=== PATIENT | female | born 1995 | race Caucasian/White ===

== ENCOUNTER 2017-03-06 08:54 | Inpatient (IN) | payer BC ==
[~2017-03-06 08:54] MED LIST: Buffered Lidocaine 0.9% SYRIN* 5 ML/SYR SYRINGE INTRADERM ONE
[2017-03-06] MEDS ORDERED: Heparin VIAL(*) 5000 UNITS/ML VIAL (FIVE THOUSAND) ONE (09:06)
[2017-03-06] MEDS ORDERED: ceFAZolin 1 GM ADVAN(*) 1 GM ADDV.VIAL IVPB ONE (09:06)
[2017-03-06] MEDS ORDERED: Buffered Lidocaine 0.9% SYRIN* 5 ML/SYR SYRINGE ONE (09:06)
[2017-03-06] MEDS ORDERED: ceFAZolin 2 GM PREMIX (*) 50 ML IVPB ONE (09:06)
[2017-03-06] MEDS ORDERED: fentaNYL* 50 MCG/ML 2 ML VIAL (100 MCG VIAL) ONE ×2 (11:48→17:29)
[2017-03-06] MEDS ORDERED: Midazolam* 1 MG/ML 5 ML VIAL (5 MG) ONE (11:48)
[2017-03-06] MEDS ORDERED: Bupivacaine 0.25% SDV* 30 ML ONE (12:12)
[2017-03-06] MEDS ORDERED: Methylene Blue 0.5 %* 50 MG/10 ML AMP IV ONE (12:12)
[2017-03-06] MEDS ORDERED: Clindamycin 900 MG IVPREMIX(* 900 MG/50 ML SDV IV ONE (12:27)
[2017-03-06] MEDS ORDERED: Propofol* 10 MG/ML 20 ML BTL IV PUSH ONE (12:37)
[2017-03-06] MEDS ORDERED: Succinylcholine* 20 MG/ML 10 ML VIAL ONE (12:37)
[2017-03-06] MEDS ORDERED: Dexamethasone IV* 4 MG/ML 1 ML (4 MG) ONE (12:37)
[2017-03-06] MEDS ORDERED: Lidocaine 2% PF* 10 ML AMP ONE (12:37)
[2017-03-06] MEDS ORDERED: Famotidine IV* 10 MG/ML 2 ML (20 mg) ONE (12:37)
[2017-03-06] MEDS ORDERED: Midazolam* 1 MG/ML 2 ML VIAL (2 MG) ONE (12:41)
[2017-03-06] MEDS ORDERED: Cisatracurium* 2 MG/ML MDV 5 ML ONE ×2 (12:45→12:46)
[2017-03-06] MEDS ORDERED: PROCHLORPERAZINE INJ 5 MG/ML 2 ML VIAL IV PRN (14:44)
[2017-03-06] MEDS ORDERED: HYDROmorphone INJ* 1 MG/ML CARPUJECT SYRINGE IV PRN (14:44)
[2017-03-06] MEDS ORDERED: Ondansetron INJ* 2 MG/ML VIAL IV PRN ×2 (14:44→16:27)
[2017-03-06] MEDS ORDERED: DiMENhydriNATE IV* 50 MG/ML VIAL IV PUSH PRN (14:44)
--- NOTE | 2017-03-06 16:25 | PN ---
Progress Note - Progress Note Date of Service: 03/06/17 Note: Brief Operative Note: Preop Dx: morbid obesity Postop Dx: same Procedure: Laparoscopic earline en y gastric bypass Anesthesia: GET Surgeon: Gladys Asst: MINDY Jones; MINDY Barker Fluids: 2500 ml RL EBL: < 100 ml Drains: 1 KRANTHI Specimen: none Findings: dictated
[2017-03-06] MEDS ORDERED: HYDROmorphone INJ* 2 MG/ML CARPUJECT SYRINGE IV PRN (16:27)
[2017-03-06] MEDS ORDERED: diPHENhydraMINE IV* 50 MG/ML 1 ml VIAL (BENADRYL) SLOW PUSH PRN (16:27)
[2017-03-06] MEDS ORDERED: Ondansetron INJ* 2 MG/ML VIAL ONE (16:57)
[2017-03-06] MEDS ORDERED: PROCHLORPERAZINE INJ 5 MG/ML 2 ML VIAL ONE (16:57)
[2017-03-06] MEDS ORDERED: Famotidine IV* 10 MG/ML 2 ML (20 mg) IV SLOW PU SCH (17:00)
[2017-03-06] MEDS: fentaNYL* 50 MCG/ML 2 ML VIAL (100 MCG VIAL) IV PRN ×2 (17:34→17:43)
[2017-03-06] MEDS ORDERED: HYDROmorphone INJ* 2 MG/ML CARPUJECT SYRINGE ONE (19:05)
[2017-03-06] MEDS ORDERED: Metoclopramide IV* 5 MG/ML 2 ML VIAL ONE (20:56)
[2017-03-06] MEDS: HYDROmorphone INJ* 2 MG/ML CARPUJECT SYRINGE IV PRN ×2 (21:15→23:22)
[2017-03-06] MEDS ORDERED: Metoclopramide IV* 5 MG/ML 2 ML VIAL IV PRN (21:25)
[2017-03-06] MEDS: Heparin VIAL(*) 5000 UNITS/ML VIAL (FIVE THOUSAND) SUBCUT SCH (22:14)
[2017-03-07] MEDS: Famotidine IV* 10 MG/ML 2 ML (20 mg) IV SLOW PU SCH ×2 (00:07→12:11)
[2017-03-07] MEDS: HYDROmorphone INJ* 2 MG/ML CARPUJECT SYRINGE IV PRN ×6 (01:37→19:25)
--- NOTE | 2017-03-07 02:37 | OP ---
CC: Dr. Lora Rene; [facility] * DATE OF OPERATION: 03/06/17 - ROOM #351 DATE OF : 89 SURGEON: Chace Graham MD. WATCH REPAIR PERSON: MINDY Guerra, and MINDY Carrion. ANESTHESIOLOGIST: Dr. Stahl. ANESTHESIA: General. PRE-OP DIAGNOSIS: Clinically severe obesity. POST-OP DIAGNOSIS: Clinically severe obesity. OPERATIVE PROCEDURE: Laparoscopic Shirlene-en-Y gastric bypass. ESTIMATED BLOOD LOSS: Less than 100 cc. FLUIDS: 2500 cc of lactated Ringer's. DRAINS: #7 KRANTHI drain. SPECIMEN: None. COUNTS: Lap pad count and instrument count correct at the end of the procedure. DESCRIPTION OF PROCEDURE: The patient was identified in the preoperative area. The case was discussed with her and her family, and consent signed. She was marked and brought to the operating room, placed on the operating table in a supine position. Preoperative antibiotics were given. Sequential devices were placed on bilateral lower extremities. General anesthesia was induced. The patient's abdomen was prepped and draped in the standard surgical fashion after a Diop catheter was inserted. A time-out was performed. Folds of the umbilicus were elevated anteriorly and a Veress needle was inserted into the abdominal cavity, which was then allowed to insufflate to a pressure of 15 mmHg. The patient tolerated the insufflation well. [place] between the xiphoid and the umbilicus a 12-mm trocar was inserted, just left of midline. A laparoscope was inserted through this and there was no evidence of injury from the trocar insertion or from the Veress needle, which was then removed. Additional trocars were then placed in the following position: A 12- mm and a 5-mm in the left upper quadrant and a 12-mm and a 5-mm in the right upper quadrant. Review of the liver showed that it was intact and only mildly enlarged. There was no free fluid. Small bowel appeared intact. Next, the omentum was reflected superiorly. The transverse colon identified. Below this, the ligament of Treitz was identified. We counted off approximately 75 cm from the ligament of Treitz and transected the bowel with a 60 mm becerra TOBIN stapling device. Small enterotomy was made along what would become the biliary- pancreatic limb. Next, the Jvwc-yg-jste was counted off another 115 cm and another enterotomy was made. Jejunojejunostomy was then created with a 16-mm becerra TOBIN stapling device and the common enterotomy was reapproximated with 2-0 silk sutures in a [id number]-dg-newtp fashion. We did a running stitch on the mesentery to close the mesenteric defect. Next, attention was turned towards the stomach. Table was placed in a steep reverse Trendelenburg. A Iliana retractor was inserted through a subxiphoid incision and the liver was retracted anteriorly into the right. This exposed the gastroesophageal fat pad, which was grasped and retracted towards the right lower quadrant. Both blunt and sharp dissection was carried out to identify the left zhane. There appeared to be no hiatal hernia. Next, a retrogastric tunnel was made between the second and third crossing vessel, along the lesser curvature of the stomach. We fired a 45 mm becerra TOBIN stapling device across this and completed our stomach pouch with an additional 50 mm becerra TOBIN stapling device extending it superiorly through the fundus and completely transecting the stomach. The pouch appeared appropriate size. Hemostasis was excellent. Next, the Shirlene limb was then brought in position to the stomach pouch. It reached without tension. This was sutured to the stomach pouch with 2-0 silk sutures. Next, a gastrotomy was made over an Tomi tube with electrocautery and an enterotomy was made. The gastro-jejunostomy was created with 30-mm becerra TOBIN stapling device and the common enterotomy was closed with interrupted 3-0 silk sutures in ciqtnk-qc-kxunj fashion. Next, methylene deep blue dye test was performed, clamping the Shirlene limb distally. We injected through the Tomi tube methylene blue and noted a small defect inferiorly along the anastomosis, between the stomach and small bowel. A stitch was used to close this defect up and we imbricated it as well along the stomach side of the edge of this pouch. It showed some violaceous changes that was not clear if this was hematoma underneath or potential ischemia. The stomach pouch was not devascularized in anyway, and so, my opinion at this point was that this was more of a hematoma underneath the serosa, but nevertheless, I imbricated the small bowel to the stomach pouch with interrupted 2-0 silk sutures in a U-stitch fashion, completely burrowing this portion of the stomach pouch that showed these visual changes. Next, methylene blue dye test was performed again. This time, negative results and no evidence of blue leakage. A #7 KRANTHI drain was inserted and brought out through the left most port, sutured to the skin with 3-0 silk interrupted sutures. The liver retractor was then removed. Review of the jejunojejunostomy showed that hemostasis was excellent at the site. I was concerned about the most difficult portion of the mesenteric closure and an additional 2-0 silk suture was used to sure this up. Next, the abdomen was allowed to collapse. Trocars were removed under direct vision and all of the incisions were reapproximated with skin mary followed by sterile dressing. The patient tolerated the procedure well, was woken up in the OR, and transferred to the PACU in stable condition. [id number]/CPS #: [id number] CHARLIE
[2017-03-07] MEDS: Ketorolac INJ* 30 MG/ML 1 ML VIAL IV PRN ×4 (03:48→22:03)
[2017-03-07] MEDS: Heparin VIAL(*) 5000 UNITS/ML VIAL (FIVE THOUSAND) SUBCUT SCH ×3 (05:45→21:25)
--- NOTE | 2017-03-07 09:17 | RAD ---
HISTORY: Status post gastric bypass COMPARISONS: January 04, 2017 TECHNIQUE: A single contrast fluoroscopic study was performed of the esophagus and upper GI tract. Water-soluble liquid contrast was administered under fluoroscopic observation. Multiple digital spot images were obtained Total fluoroscopy time is 0.5 minutes. FINDINGS: UPPER GI TRACT: The patient is status post gastric bypass. There is no appreciable extravasation or obstruction. The esophagus is unremarkable.. IMPRESSION: STATUS POST GASTRIC BYPASS WITHOUT APPRECIABLE EXTRAVASATION OR OBSTRUCTION. CPT II Codes: 6045F
--- NOTE | 2017-03-07 11:50 | PN ---
Progress Note - Progress Note Date of Service: 03/07/17 Note: Surgery Progress: S: POD #1. Had sig pain last night; better this a.m. No N/V. Ambulating well. Passing flatus. O: Vital Signs - 8 hr 03/07/17 03/07/17 03/07/17 04:45 05:45 06:45 Temperature Pulse Rate Respiratory 18 16 18 Rate Blood Pressure (mmHg) O2 Sat by Pulse Oximetry 03/07/17 03/07/17 03/07/17 07:27 07:53 08:00 Temperature 97.7 F Pulse Rate 100 Respiratory 16 18 18 Rate Blood Pressure 155/79 (mmHg) O2 Sat by Pulse 98 98 Oximetry 03/07/17 08:53 Temperature Pulse Rate Respiratory 18 Rate Blood Pressure (mmHg) O2 Sat by Pulse Oximetry Intake and Output Last 24 Hours 03/05/17 03/06/17 03/07/17 03/08/17 06:59 06:59 06:59 06:59 Intake Total 3600 1011 Output Total 2255 225 Balance 1345 786 Weight 368 lb 3.2 oz Intake: IV Fluids 3600 1011 ANCEF 3 GM 100 CLINDAMYCIN 900 MG 50 LR 3450 1011 Oral 0 Output: KRANTHI #1 55 Idop 2200 225 Other: # Bowel Movements 0 Heart: reg; mildly tachy (just returned from a walk) Lungs: clear Abd: +BS; sl hypoactive; KRANTHI: light, clear serosang; moderate old bloody drainage around drain site; dsg changed; other dsgs clean and dry; soft; min tenderness to pal; UGI: normal A: s/p lap RYGB, doing well P: ricki clears; Diop out; cont ambulation; KRANTHI drain
[2017-03-07] MEDS: HYDROcodone/ACET. 7.5/325 LIQ* 15 ML UDC PO PRN ×2 (14:08→21:25)
[2017-03-07] MEDS: D5W 1/2 NS KCl 20 Meq 1000 ML* 1,000 ML IV SCH (16:00)
[2017-03-08] MEDS: D5W 1/2 NS KCl 20 Meq 1000 ML* 1,000 ML IV SCH (00:07)
[2017-03-08] MEDS: Acetaminophen ADULT LIQ* 650 MG/20.3 ML UDC PO PRN ×2 (00:17→06:20)
[2017-03-08] MEDS: Famotidine IV* 10 MG/ML 2 ML (20 mg) IV SLOW PU SCH ×2 (00:25→10:07)
[2017-03-08] MEDS: HYDROcodone/ACET. 7.5/325 LIQ* 15 ML UDC PO PRN ×2 (03:52→10:07)
[2017-03-08] MEDS: Heparin VIAL(*) 5000 UNITS/ML VIAL (FIVE THOUSAND) SUBCUT SCH (06:21)
[2017-03-08] MEDS: Ketorolac INJ* 30 MG/ML 1 ML VIAL IV PRN (06:27)
[2017-03-08 08:18] VITALS: BP 147/83
[2017-03-08] MEDS ORDERED: Influenza VAC *QUAD* 2017-18* 0.5 ML SYRINGE IM ONE (09:00)
--- NOTE | 2017-03-08 13:02 | PN ---
Progress Note - Progress Note Date of Service: 03/08/17 SOAP: Subjective: Pt seen and examined , Case d/w C Barker. Pt feeling well. Nausea overnight. Tolerating clears Objective: af Vss HR 100 abdo: soft/ ND, NT KRANTHI; serous UGI wnl Assessment: POD1 RYGB Plan: continue KRANTHI- likely removal at discharge d/c planning
--- NOTE | 2017-03-09 03:03 | DS ---
CC: Dr. Lora Rene * DISCHARGE SUMMARY: DATE OF ADMISSION: 03/06/17 DATE OF DISCHARGE: 03/08/17 ATTENDING SURGEON: David Graham * (DICTATED BY MINDY FLANAGAN) HOSPITAL COURSE: Please refer to admission history and physical for admission details. The patient was taken to operating room on 03/06/17 at which time she underwent laparoscopic Shirlene-en-Y gastric bypass with Dr. Graham (see separate operative report). The patient has had an otherwise uneventful postoperative course with a normal upper GI study on the morning of postoperative day #1. She gradually improved her oral intake with bariatric clear liquids and her pain is also improved considerably over the last 24 to 48 hours. PHYSICAL EXAMINATION: General: Well nourished, morbidly obese female, in no acute distress. Vital Signs: Temperature 97.9, blood pressure 147/83, pulse 93 , respirations 16, room air saturation 98%. Heart: Regular rate and rhythm. No murmurs. Lungs: Clear to auscultation. Abdomen: Healing laparoscopic incision sites with intact mary. Dressing were removed. [place]-Land[place] drain was also removed and dry sterile dressing placed. DISCHARGE INSTRUCTIONS: The patient's instructions regarding wound care, activity and diet were reviewed. She has a followup setup at the [facility]. MINDY FLANAGAN [id number]/CPS #: [id number] MTDD
[2017-03-09] MEDS ORDERED: Scopolomine PATCH Remove* 1 NOTE MISC PATCH OFF ONE (14:45)
== END 2017-03-08 11:30 | disposition home or self-care (01) | DRG 403 ==
LOC: AA 08:54 → SSU 18:08
PROVIDERS: ADMIT Surgery; ATTEND Surgery
PROC: 0D164ZA Bypass Stomach to Jejunum, Percutaneous Endoscopic Approach (ICD-10-PCS; principal; 2017-03-06 10:30)
DX: E66.01 Morbid (severe) obesity due to excess calories (principal); E28.2 Polycystic ovarian syndrome; F41.9 Anxiety disorder, unspecified; F32.9 Major depressive disorder, single episode, unspecified; E55.9 Vitamin D deficiency, unspecified; Z82.49 Family history of ischemic heart disease and other diseases of the circulatory system; Z80.3 Family history of malignant neoplasm of breast; Z83.3 Family history of diabetes mellitus; Z68.44 Body mass index [BMI] 60.0-69.9, adult; Z23 Encounter for immunization
CPT/HCPCS: 43644; 74246; 81025; 90686; A9270-GY; C1776; J0330; J0690; J0780; J1100; J1170; J1644; J1885; J2001; J2250; J2405; J2704; J2765; J3010

== ENCOUNTER 2018-04-09 14:04 | Inpatient (IN) | payer BC ==
[2018-04-09] MEDS ORDERED: Dinoprostone* 10 MG VAG.SUPP VAGINAL ONE (17:00)
[2018-04-09] MEDS ORDERED: Promethazine INJ(RESTRICTED)* 25 MG/ML 1 ML VIAL IM ONE (17:00)
[2018-04-09] MEDS ORDERED: Nalbuphine* 10 MG/ML 1 ML VIAL IM ONE (17:00)
--- NOTE | 2018-04-09 17:35 | HP ---
General Information - Reason for Visit cervical ripening - General Information Maternal Age: 22 Grav: 1 Para: 0 SAB: 0 IEA: 0 Estimated Due Date: 04/11/18 Determined By: LMP Gestational Age in Weeks/Days: 39w 5d Maternal Blood Type and Rh: O Positive - Results this Serology/RPR Result: Non-Reactive Rubella Result: Immune HBsAg Result: Negative HIV Result: Negative GBS Culture Result: Negative Past Medical History Pertinent Past Medical History: See Records - hx gastric bypass surgery, anxiety, BMI 52 Pertinent Past Surgical History: See Records - earline en y gastric bypass Pertinent Family History: See Records - CVD, Br CA - Antepartal Records Antepartal Records: Reviewed, Complicated by: - gastric bypass, BMI 52 Review of Systems Constitutional: Comfortable CV Complaint: No Respiratory: Shortness of Breath: No Gastrointestinal: No Nausea/Vomiting, Normal Bowel Movement Genitourinary: No Dysuria, No Bleeding, No Leaking Fluid Musculoskeletal: Back Pain Neurological: No Headache, No Visual Changes Movement: Normal Exam Allergies/Adverse Reactions: Allergies No Known Allergies Allergy (Verified 04/09/18 14:42) BP: 150/96, repeat B/P: 125/66 P:81, R:20, O2:99%, T:98.3 - Measurements Height: 5 ft 5 in Weight: 292 lb Weight in lbs: 292.684744 Body Mass Index (BMI): 48.6 Pre- Weight: 383 lb Weight Gained This : -91 lbs and 0 ozs - Exam Breast: Breast Exam Deferred CVA: No CVA Tenderness Extremities: No Edema Heart: Normal Rhythm/Heart Sounds HEENT: No Significant Findings Lungs: Clear Bilaterally Rectal: Rectal Exam Deferred Reflexes: DTR 2+ Thyroid: No Thyromegaly - Abdominal Exam Abdomen Exam: Fundal Height Consistent with Dates - Ultrasound/Biophysical Profile Ultrasound Status: Not Done Targeted Exam Findings Cervical Exam: 2cm Effacement: 60% Station: Ballotable Presenting Part: Vertex Membrane Status: Intact Bleeding/Discharge: Bloody Show EFM Findings - External Monitor Findings Baseline Heart Rate: 150 External Monitor Findings: Accelerations Present, No Pattern of Variable or Late Decelerations, Variability Moderate, Baseline Stable Contractions: None Assessment/Plan - Assessment 22 y.o. , 39w 5d EGA, hx gastric bypass surgery, cervical ripening - Obstetrical Risk Factors Obstetrical Risk Factors: Obesity - Plan Plan: Cervical Ripening - Date/Time of Admission Date of Admission: 04/09/18 Time of Admission: 17:36
[2018-04-09 22:04] LABS: Hematocrit 35 % (35-47); Mean Corpuscular HGB Conc 32 g/dl (31-36); Mean Corpuscular Hemoglobin 24 pg (27-31); Mean Corpuscular Volume 75 fL (80-97); Mean Platelet Volume 8.3 fL (7.4-10.4); Platelet Count 305 10^3/ul (150-450); Red Blood Count 4.63 10^6/ul (4.00-5.40); Red Cell Distribution Width 16 % (10.5-15); White Blood Count 17.4 10^3/ul (3.5-10.8)
[2018-04-09] MEDS ORDERED: Oxytocin in LR* 20 UNITS/1,000 ML BAG IVPB ONE (22:04)
[2018-04-09] MEDS ORDERED: Dibucaine 1% 28.35 GM TUBE PR PRN (22:41)
[2018-04-09] MEDS ORDERED: Glycerin ADULT SUPP PR PRN (22:41)
[2018-04-09] MEDS ORDERED: Witch Hazel PAD* JAR TOPICAL PRN (22:41)
--- NOTE | 2018-04-09 22:49 | PROCNOTE ---
[facility] OB: Delivery Note - Delivery A Date of : 04/09/18 Time of : 21:58 Sex: Male Weight at : 7 lb 6 oz Score 1 Minute: 7 Score 5 Minutes: 8 Gestational Age in Weeks and Days at Delivery: 39 Weeks and 5 Days Delivery Method: Spontaneous Vaginal Labor: Induced Did Patient attempt ?: N/A, No Previous Amniotic Fluid: Meconium Estimated Blood Loss: 250 Anesthesia/Analgesia: IM/IV, Nitrous-Labor Delivered By: Tatiana Giles - Nursery Level of Nursery: Regular/Bedside - Perineum Perineal Injury: Perineal Laceration, 2nd Degree Perineal Repair: By Delivering Practioner - Events Delivery Events of Note: Pitocin Only After Delivery, Precipitous Delivery Delivery Events of Note Comment: nuchal cord x 1, easily reduced
[2018-04-10] MEDS: Ibuprofen TAB* 600 MG PO PRN ×4 (02:13→21:28)
[2018-04-10 07:05] LABS: Hematocrit 31 % (35-47); Hemoglobin 10.2 g/dl (12.0-16.0); Mean Corpuscular HGB Conc 33 g/dl (31-36); Mean Corpuscular Hemoglobin 24 pg (27-31); Mean Corpuscular Volume 74 fL (80-97); Mean Platelet Volume 8.1 fL (7.4-10.4); Platelet Count 316 10^3/ul (150-450); Red Blood Count 4.25 10^6/ul (4.00-5.40); Red Cell Distribution Width 15 % (10.5-15); White Blood Count 16.3 10^3/ul (3.5-10.8)
[2018-04-10 07:28] LABS: ABS Basophils 0.2 10^3/ul (0-0.2); ABS Eosinophils 0 10^3/ul (0-0.6); ABS Lymphocytes 2.5 10^3/ul (1.0-4.8); ABS Monocytes 0.9 10^3/ul (0-0.8); ABS Neutrophils 12.7 10^3/ul (1.5-7.7); ABS Nucleated RBC 0 10^3/ul; Eosinophil % 0.1 % (0-6); Lymphocyte % 15.7 % (25-47); Nucleated Red Blood Cells % 0
[2018-04-10] MEDS: Docusate CAP* 100 MG PO SCH ×3 (08:03→21:28)
[2018-04-10] MEDS ORDERED: Simethicone TAB* 80 MG TAB.CHEW PO SCH (08:30)
[2018-04-10] MEDS ORDERED: Ferrous Gluconate TAB* 324 MG TAB PO SCH (09:00)
[2018-04-10] MEDS: Acetaminophen TAB* 325 MG PO PRN ×2 (11:57→18:39)
[2018-04-11] MEDS: Acetaminophen TAB* 325 MG PO PRN (02:38)
[2018-04-11] MEDS: Ibuprofen TAB* 600 MG PO PRN (06:19)
[2018-04-11 08:11] VITALS: BP 130/87
[2018-04-11] MEDS: Docusate CAP* 100 MG PO SCH (08:25)
== END 2018-04-11 11:26 | disposition home or self-care (01) | DRG 560 ==
LOC: MCHOBOUT 14:04 → MCHOB 14:32
PROVIDERS: ADMIT Midwife; ATTEND Midwife
PROC: 3E033VJ Introduction of Other Hormone into Peripheral Vein, Percutaneous Approach (ICD-10-PCS; principal; 2018-04-09)
PROC: 10E0XZZ Delivery of Products of Conception, External Approach (ICD-10-PCS; 2018-04-09)
PROC: 4A1HXCZ Monitoring of Products of Conception, Cardiac Rate, External Approach (ICD-10-PCS; 2018-04-09)
PROC: 0KQM0ZZ Repair Perineum Muscle, Open Approach (ICD-10-PCS; 2018-04-09)
PROC: 3E0P7VZ Introduction of Hormone into Female Reproductive, Via Natural or Artificial Opening (ICD-10-PCS; 2018-04-09)
DX: O99.214 Obesity complicating childbirth (principal); Z68.42 Body mass index [BMI] 45.0-49.9, adult; Z37.0 Single live birth; O62.3 Precipitate labor; O69.81X0 Labor and delivery complicated by cord around neck, without compression, not applicable or unspecified; O70.1 Second degree perineal laceration during delivery; Z3A.39 39 weeks gestation of pregnancy; Z98.84 Bariatric surgery status
CPT/HCPCS: 36415; 85025; 85027; 86850; 86900; 86901; A9270-GY; J2300; J2550

== ENCOUNTER 2018-06-18 12:42 | Inpatient (IN) | payer BC ==
--- NOTE | 2018-06-18 14:30 | ED ---
Abdominal Pain/Female - HPI Summary HPI Summary: A 22 y/o female accompanied by her mother was a transfer patient from [facility] due to abdominal pain and flank pain since 06/11/18. Per triage note, "Pt states she went to [facility] ER , had an ultrasound and was told she had gallstones and sent to the [facility] ER". She reports that Dr. Graham wanted the patient to get a CT. She claims that her pain has gotten better as she rates her pain as a 4/10 in severity. She also c/o nausea and dysuria. She denies fever, chills, erythema (eyes), sore throat, chest pain, shortness of breath, cough, vomiting, hematuria, myalgia, edema, rash and dizziness She has recently given . She had gastric bypass in February 2017 and lost 130lbs but she was also . She is currently nursing but also using supplements. She has hepatomegaly, a 1.1cm common bile duct, total biliary 5.8cm, direct 4.4cm. She was given pain medication at [place] along with having bloodwork and an ultrasound done which showed gallstones, but has not eaten or had anything to drink since the night of 06/17/18. She is not doing a liquid diet and denies a Hx of kidney stones. FHx of kidney stones from her mother. - History of Current Complaint Chief Complaint: EDAbdPain Stated Complaint: ABD PAIN/BACK PAIN Time Seen by Provider: 06/18/18 14:20 Hx Obtained From: Patient Onset/Duration: Sudden Onset, Lasting Days, Still Present Timing: Constant Severity Initially: Severe Severity Currently: Moderate Pain Intensity: 4 Pain Scale Used: 0-10 Numeric Location: Diffuse, Flank Character: Not Applicable Aggravating Factor(s): Nothing Alleviating Factor(s): Nothing Associated Signs and Symptoms: Positive: Nausea, Other: - Positive: dysuria. Negative: Fever, Cough, Chest Pain, Dizzy, Vomiting Allergies/Adverse Reactions: Allergies Allergy/AdvReac Type Severity Reaction Status Date / Time No Known Allergies Allergy Verified 06/18/18 12:49 Home Medications: Home Medications Naproxen Sodium [Naproxen 220 mg] 440 mg PO Q8HR PRN 06/18/18 [History Confirmed 06/18/18] Pnv,Calcium 72/Iron,Carb/Folic [ Plus Iron 29-1 mg] 1 tab PO DAILY 06/18 [History Confirmed 06/18/18] PMH/Surg Hx/FS Hx/Imm Hx History: Reports: Other Problems/Disorders - PCOS - takes metformin Sensory History: Reports: Hx Contacts or Glasses - glasses Denies: Hx Hearing Aid Opthamlomology History: Reports: Hx Contacts or Glasses - glasses Psychiatric History: Reports: Hx Anxiety - prn hydroxyzine, Hx Depression - prn hydroxyzine - Surgical History Surgery Procedure, Year, and Place: tonsillectomy 2002 graham Hx Anesthesia Reactions: No Infectious Disease History: No Infectious Disease History: Denies: Traveled Outside the [place] in Last 30 Days - Family History Known Family History: Positive: Other - positive: kidney stones- mother - Social History Alcohol Use: None Substance Use Type: Reports: None Smoking Status (MU): Never Smoked Tobacco Review of Systems Negative: Fever, Chills Negative: Erythema Negative: Sore Throat Negative: Chest Pain Negative: Shortness Of Breath, Cough Positive: Abdominal Pain, Nausea. Negative: Vomiting Positive: dysuria. Negative: hematuria Negative: Myalgia, Edema Negative: Rash Neurological: Negative - dizziness All Other Systems Reviewed And Are Negative: Yes Physical Exam - Summary Physical Exam Summary: Constitutional: Well-developed, Well-nourished, Alert. (-) Distressed Skin: Warm, Dry HENT: Normocephalic; Atraumatic Eyes: Conjunctiva normal Neck: Musculoskeletal ROM normal neck. (-) JVD, (-) Stridor, (-) Tracheal deviation Cardio: Rhythm regular, rate normal, Heart sounds normal; Intact distal pulses; The pedal pulses are 2+ and symmetric. Radial pulses are 2+ and symmetric. (-) Murmur Pulmonary/Chest wall: Effort normal. (-) Respiratory distress, (-) Wheezes, (-) Rales Abd: Soft, (-) epigastric tenderness, (-) Distension, (-) Guarding, (-) Rebound Musculoskeletal: (-) Edema Lymph: (-) Cervical adenopathy Neuro: Alert, Oriented x3 Psych: Mood and affect Normal Triage Information Reviewed: Yes Vital Signs On Initial Exam: Initial Vitals Temp Pulse Resp BP Pulse Ox 97.2 F 77 17 128/82 99 06/18/18 12:45 06/18/18 12:45 06/18/18 12:45 06/18/18 12:45 06/18/18 12:45 Vital Signs Reviewed: Yes Diagnostics - Vital Signs Vital Signs Temp Pulse Resp BP Pulse Ox 06/18/18 12:45 97.2 F 77 17 128/82 99 - Laboratory Result Diagrams: 06/18/18 14:58 06/18/18 14:58 Lab Statement: Any lab studies that have been ordered have been reviewed, and results considered in the medical decision making process. - CT abdomen/pelvis CT Interpretation Completed By: Radiologist Summary of CT Findings: 1. No CT evidence of leakage at the gastrojejunostomy. 2. Questionable small amount of pericholecystic fluid in the otherwise normal- appearing. gallbladder. If the patient's symptoms could be due to cholecystitis , superior. characterization of the gallbladder can be made with ultrasound of the right upper. quadrant. 3. Additional chronic, degenerative and iatrogenic findings described in the body the report. Re-Evaluation - Re-Evaluation First Eval Re-Evaluation Time: 14:51 Change: Unchanged Comment: Discussed plan for CT. Abdominal Pain Fem Course/Dx - Course Course Of Treatment: A 22 y/o female accompanied by her mother was a transfer patient from [facility] due to abdominal pain and flank pain since . Lab results obtained. Lipase at 14:58 high at 2909. Abdomen/pelvis CT impression: 1. No CT evidence of leakage at the gastrojejunostomy. 2. Questionable small amount of pericholecystic fluid in the otherwise normal- appearing. gallbladder. If the patient's symptoms could be due to cholecystitis , superior. characterization of the gallbladder can be made with ultrasound of the right upper. quadrant. 3. Additional chronic, degenerative and iatrogenic findings described in the body the report. In the ED course she was given Tylenol PO and Iohexol (contrast) IV. Case discussed with Dr. Graham, surgeon, who accepted the patient for admission. The patient is agreeable with this plan. - Diagnoses Provider Diagnoses: Obstructive jaundice - Provider Notifications Discussed Care Of Patient With: Chace Graham Time Discussed With Above Provider: 14:45 Instructed by Provider To: Other - He suggests CT with 30 minutes of oral contrast to rule out internal and external hernias. If CT is negative he will admit the patient or transfer the patient. Discharge - Sign-Out/Discharge Documenting (check all that apply): Patient Departure - Discharge Plan Condition: Good Disposition: ADMITTED TO [facility] - Billing Disposition and Condition Condition: GOOD Disposition: Admitted to [facility] - Attestation Statements Document Initiated by Tia: Yes Documenting Scribe: Moises Montgomery Provider For Whom Tia is Documenting (Include Credential): Chong Carter MD Scribe Attestation: IMoises, scribed for Chong Carter MD on 06/18/18 at 2051. Scribe Documentation Reviewed: Yes Provider Attestation: The documentation as recorded by the Moises cotto accurately reflects the service I personally performed and the decisions made by me, Chong Carter MD Status of Scribe Document: Viewed
[2018-06-18] MEDS ORDERED: Iohexol 300* (CONTRAST) 10 ML SDV IV ONE (15:15)
[2018-06-18] MEDS ORDERED: Acetaminophen TAB* 325 MG PO ONE (15:19)
[2018-06-18 15:31] LABS: Albumin 4.1 g/dL (3.2-5.2); Albumin/Globulin Ratio 1.4 (1-3); BUN/Creatinine Ratio 21.2 (8-20); C Reactive Protein 7.29 mg/L (<8.01); Calcium 9.5 mg/dL (8.6-10.3); EGFR African American 175.3 (>60); EGFR Non-African American 144.9 (>60); Globulin 2.9 g/dL (2-4); Potassium 3.3 mmol/L (3.5-5.0); Total Bilirubin 3.8 mg/dL (0.2-1.0)
[2018-06-18 15:47] LABS: Hematocrit 33 % (35-47); Hemoglobin 10.5 g/dl (12.0-16.0); Mean Corpuscular HGB Conc 31 g/dl (31-36); Mean Corpuscular Hemoglobin 22 pg (27-31); Mean Corpuscular Volume 70 fL (80-97); Mean Platelet Volume 8.3 fL (7.4-10.4); Platelet Count 305 10^3/ul (150-450); Red Blood Count 4.76 10^6/ul (4.00-5.40); Red Cell Distribution Width 19 % (10.5-15); White Blood Count 10.8 10^3/ul (3.5-10.8)
[2018-06-18 16:23] LABS: Lymphocytes % 20 %; Microcytosis 1+; Monocytes % 6 %; Neutrophil % 74 %
[2018-06-18 16:24] LABS: ABS Basophils 0.1 10^3/ul (0-0.2); ABS Eosinophils 0.1 10^3/ul (0-0.6); ABS Monocytes 0.5 10^3/ul (0-0.8); ABS Neutrophils 8.2 10^3/ul (1.5-7.7); ABS Nucleated RBC 0 10^3/ul; Nucleated Red Blood Cells % 0
[2018-06-18] MEDS ORDERED: Ondansetron INJ* 2 MG/ML VIAL IV PRN (17:36)
[2018-06-18 18:27] LABS: Urine Appearance Clear; Urine Bacteria Absent (Absent); Urine Bilirubin Negative (Negative); Urine Blood Negative (Negative); Urine Color Amber; Urine Glucose Negative (Negative); Urine Ketones Negative (Negative); Urine Nitrite Negative (Negative); Urine Protein Negative (Negative); Urine Red Blood Cell Trace(0-2/hpf) (Absent); Urine Specific Gravity 1.034 (1.010-1.030); Urine Squamous Epithelial Cell Present (Absent); Urine Urobilinogen Negative (Negative); Urine White Blood Cell Trace(0-5/hpf) (Absent)
--- NOTE | 2018-06-18 19:34 | HP ---
CC: Lora Rene DO; [facility] * HISTORY AND PHYSICAL: DATE OF ADMISSION: 06/18/18. HISTORY OF PRESENT ILLNESS: I was contacted by [facility] regarding Ms. Gibson, a 22-year-old female known to me after undergoing a laparoscopic Shirlene-en- Y gastric bypass procedure 15 months ago. The patient has been lost to followup, got promptly after surgery, and delivered a healthy boy a few months ago. During her , she does describe having right upper and left upper quadrant pain that would resolve. This has been occurring on a somewhat regular basis. The patient had not followed with us, but was encouraged by her mother to present to the emergency room today for these reasons. They also described yellowing skin as well as persistent diarrhea for these past 5 days. The patient had some nausea and bloating, but otherwise has had appetite. Denies any fevers or chills. Stool is again liquid , diarrhea type that is light in color. Urine has been dark in color. PAST MEDICAL HISTORY: disease, morbid obesity. PAST SURGICAL HISTORY: Gastric bypass. MEDICATIONS: Prescription medications, none. ALLERGIES: No known drug allergies. REVIEW OF SYSTEMS: She does not smoke, drink or do IV drugs. She watches her child. She is breast feeding. Continues to have a feeling of fullness. She continues to lose weight. This is her lowest weight since surgery as she was approximately 390 pounds at the time of surgery. PHYSICAL EXAMINATION VITAL SIGNS: She is afebrile. Vital signs are stable. Alert and oriented x3, in no apparent distress. HEENT: Normocephalic, atraumatic. Sclerae are icteric. Mucous membranes are dry. NECK: No lymphadenopathy. LUNGS: Clear to auscultation bilaterally. No CVA tenderness. ABDOMEN: Soft, obese, minimal tenderness on deep palpation in the upper abdomen. No bloating. RECTAL: Not performed. EXTREMITIES: Within normal limits. DIAGNOSTIC STUDIES/LAB DATA: Labs reviewed both from [facility] and also at our emergency room here at [facility]. The patient had elevated total bilirubin of 5.8, repeat in our lab is 3.8. She does have persistent elevated transaminases and alk phos, and a lipase at our institution of 2900. Potassium is 3.3 and anemia with H and H 10.5/33, and a platelet count of 305, 000. White count is normal. The patient underwent an ultrasound at [facility]. This report was reviewed and did show cholelithiasis without evidence of acute cholecystitis. She had prominent common bile duct of approximately 1 cm. I did recommend a CT scan. This was performed at our institution for concern of the possibility of internal herniation. I reviewed these images as well as the report. Pancreas appeared within normal limits. The contrast went to the distal small bowel. The Shirlene limb appeared intact without dilation. The biliopancreatic limb appeared normal. IMPRESSION: Likely gallstone pancreatitis and possibility of choledocholithiasis with obstruction in the patient who is clinically doing very well. PLAN/RECOMMENDATIONS: My recommendation is admission, IV fluids, strict I's and O's, n.p.o. status, and repeat labs in the morning. I discussed with her the possible need for gallbladder surgery, and even the possible need of ERCP or MRCP. This may not be necessary and will follow the patient's lipase as well as transaminases and bilirubin. My hope is that the patient will show prompt improvement and we will look towards laparoscopic cholecystectomy in a timely fashion. All of this was discussed with the patient and her mother. She will be admitted with the above plan. [id number]/[facility] #: [id number] [facility]ITALSharmin
[2018-06-18] MEDS: KCL 20 MEQ/100 ML IVPREMIX* 20 MEQ/100 ML BAG IV SCH (21:00)
[2018-06-18] MEDS: Lactated Ringers 1000 ML Bag* 1,000 ML IV SCH (21:00)
[2018-06-19] MEDS: Acetaminophen TAB* 325 MG PO PRN ×3 (00:51→15:31)
[2018-06-19] MEDS: KCL 20 MEQ/100 ML IVPREMIX* 20 MEQ/100 ML BAG IV SCH (02:16)
[2018-06-19] MEDS: Lactated Ringers 1000 ML Bag* 1,000 ML IV SCH ×3 (03:28→19:12)
[2018-06-19 06:56] LABS: ABS Basophils 0 10^3/ul (0-0.2); ABS Eosinophils 0.1 10^3/ul (0-0.6); ABS Lymphocytes 1.7 10^3/ul (1.0-4.8); ABS Monocytes 0.4 10^3/ul (0-0.8); ABS Nucleated RBC 0 10^3/ul; Hematocrit 30 % (35-47); Hemoglobin 9.4 g/dl (12.0-16.0); Mean Corpuscular HGB Conc 32 g/dl (31-36); Mean Corpuscular Hemoglobin 22 pg (27-31); Mean Corpuscular Volume 71 fL (80-97); Mean Platelet Volume 7.7 fL (7.4-10.4); Nucleated Red Blood Cells % 0; Platelet Count 253 10^3/ul (150-450); Red Blood Count 4.21 10^6/ul (4.00-5.40); Red Cell Distribution Width 19 % (10.5-15); White Blood Count 6.2 10^3/ul (3.5-10.8)
[2018-06-19 07:07] LABS: ALT 150 U/L (7-52); AST 90 U/L (13-39); Albumin 3.3 g/dL (3.2-5.2); Albumin/Globulin Ratio 1.2 (1-3); Alkaline Phosphatase 374 U/L (34-104); Anion Gap 6 mmol/L (2-11); BUN/Creatinine Ratio 27.5 (8-20); Blood Urea Nitrogen 11 mg/dL (6-24); CO2 Carbon Dioxide 27 mmol/L (22-32); Calcium 9.1 mg/dL (8.6-10.3); Chloride 106 mmol/L (101-111); EGFR African American 237.3 (>60); EGFR Non-African American 196.1 (>60); Globulin 2.7 g/dL (2-4); Glucose 79 mg/dL (70-100); Magnesium 1.8 mg/dL (1.9-2.7); Phosphorus 3.9 mg/dL (2.5-5.0); Potassium 3.9 mmol/L (3.5-5.0); Sodium 139 mmol/L (135-145)
[2018-06-19 07:34] LABS: Folate > 20.00 ng/mL (>3.99)
--- NOTE | 2018-06-19 08:22 | PN ---
Progress Note - Progress Note Date of Service: 06/19/18 SOAP: Subjective: Pt seen and examined. Doing well. one loose BM. improving abdo pain Objective: Temp Pulse Resp BP Pulse Ox 98.1 F 61 16 118/69 100 06/19/18 07:27 06/19/18 07:27 06/19/18 07:27 06/19/18 07:27 06/19/18 07:27 Intake & Output 06/18/18 06/19/18 06/19/18 22:59 06:59 14:59 Intake Total 150 1000 Output Total 400 1600 Balance -250 -600 Weight 250 lb 250 lb a and o x3, nad abdo: soft/obese/ min tenderness at ruq. no rebound ext wnl labs noted and lipase, TB down Assessment: improving GS pancreatitis Plan: OR tomorrow for tommy dee PT aware of plan and R/B/A clear today , NPO at [place]
[2018-06-19] MEDS: HYDROmorphone INJ1* 1 MG/ML SYRINGE IV PRN (19:24)
[2018-06-20] MEDS: Lactated Ringers 1000 ML Bag* 1,000 ML IV SCH ×2 (00:43→08:01)
[2018-06-20 07:51] LABS: Albumin 3.4 g/dL (3.2-5.2); Albumin/Globulin Ratio 1.2 (1-3); Globulin 2.8 g/dL (2-4); Total Bilirubin 1.6 mg/dL (0.2-1.0); Total Protein 6.2 g/dL (6.4-8.9)
[2018-06-20] MEDS: HYDROmorphone INJ1* 1 MG/ML SYRINGE IV PRN (08:07)
--- NOTE | 2018-06-20 10:49 | PN ---
Progress Note - Progress Note Date of Service: 06/20/18 SOAP: Subjective: Pt seen and examined. Feeling well. She did require morphine this am. no nausea Objective: Intake & Output 06/19/18 06/20/18 06/20/18 22:59 06:59 14:59 Intake Total 980 900 Output Total 2300 Balance -1320 900 Intake & Output 06/19/18 06/20/18 06/20/18 22:59 06:59 14:59 Intake Total 980 900 Output Total 2300 Balance -1320 900 a and o x3, lungs clear abdo: soft/ ND/ NT Laboratory Last Values WBC 6.2 10^3/ul (3.5-10.8) 06/19/18 06:34 RBC 4.21 10^6/ul (4.00-5.40) 06/19/18 06:34 Hgb 9.4 g/dl (12.0-16.0) L 06/19/18 06:34 Hct 30 % (35-47) L 06/19/18 06:34 MCV 71 fL (80-97) L 06/19/18 06:34 MCH 22 pg (27-31) L 06/19/18 06:34 MCHC 32 g/dl (31-36) 06/19/18 06:34 RDW 19 % (10.5-15) H 06/19/18 06:34 Plt Count 253 10^3/ul (150-450) 06/19/18 06:34 MPV 7.7 fL (7.4-10.4) 06/19/18 06:34 Neut % (Auto) 64.0 % 06/19/18 06:34 Lymph % (Auto) 27.0 % 06/19/18 06:34 [place] % (Auto) 6.3 % 06/19/18 06:34 Eos % (Auto) 2.0 % 06/19/18 06:34 Baso % (Auto) 0.7 % 06/19/18 06:34 Absolute Neuts (auto) 4.0 10^3/ul (1.5-7.7) 06/19/18 06:34 Absolute Lymphs (auto) 1.7 10^3/ul (1.0-4.8) 06/19/18 06:34 Absolute Monos (auto) 0.4 10^3/ul (0-0.8) 06/19/18 06:34 Absolute Eos (auto) 0.1 10^3/ul (0-0.6) 06/19/18 06:34 Absolute Basos (auto) 0 10^3/ul (0-0.2) 06/19/18 06:34 Absolute Nucleated RBC 0 10^3/ul 06/19/18 06:34 Neutrophils % 74 % 06/18/18 14:58 Lymphocytes % 20 % 06/18/18 14:58 Monocytes % 6 % 06/18/18 14:58 Nucleated RBC % 0 06/19/18 06:34 Normal RBC Morphology Not Reportable 06/18/18 14:58 Anisocytosis 1+ 06/18/18 14:58 Microcytosis 1+ 06/18/18 14:58 Sodium 139 mmol/L (135-145) 06/19/18 06:34 Potassium 3.9 mmol/L (3.5-5.0) 06/19/18 06:34 Chloride 106 mmol/L (101-111) 06/19/18 06:34 Carbon Dioxide 27 mmol/L (22-32) 06/19/18 06:34 Anion Gap 6 mmol/L (2-11) 06/19/18 06:34 BUN 11 mg/dL (6-24) 06/19/18 06:34 Creatinine 0.40 mg/dL (0.51-0.95) L 06/19/18 06:34 Est GFR ( Amer) 237.3 (>60) 06/19/18 06:34 Est GFR (Non-Af Amer) 196.1 (>60) 06/19/18 06:34 BUN/Creatinine Ratio 27.5 (8-20) H 06/19/18 06:34 Glucose 79 mg/dL (70-100) 06/19/18 06:34 Lactic Acid 0.6 mmol/L (0.5-2.0) 06/18/18 20:50 Calcium 9.1 mg/dL (8.6-10.3) 06/19/18 06:34 Phosphorus 3.9 mg/dL (2.5-5.0) 06/19/18 06:34 Magnesium 1.8 mg/dL (1.9-2.7) L 06/19/18 06:34 Total Bilirubin 1.60 mg/dL (0.2-1.0) H 06/20/18 06:47 Direct Bilirubin 0.60 mg/dL (0.03-0.18) H 06/20/18 06:47 Indirect Bilirubin 1.0 mg/dL (0.3-1.0) 06/20/18 06:47 AST 66 U/L (13-39) H 06/20/18 06:47 ALT 125 U/L (7-52) H 06/20/18 06:47 Alkaline Phosphatase 341 U/L (34-104) H 06/20/18 06:47 C-Reactive Protein 7.29 mg/L (<8.01) 06/18/18 14:58 Total Protein 6.2 g/dL (6.4-8.9) L 06/20/18 06:47 Albumin 3.4 g/dL (3.2-5.2) 06/20/18 06:47 Globulin 2.8 g/dL (2-4) 06/20/18 06:47 Albumin/Globulin Ratio 1.2 (1-3) 06/20/18 06:47 Lipase 183 U/L (11.0-82.0) H 06/20/18 06:47 Vitamin B12 213 pg/mL (180-914) 06/19/18 06:34 Folate > 20.00 ng/mL (>3.99) 06/19/18 06:34 Urine Color [place] 06/18/18 18:10 Urine Appearance Clear 06/18/18 18:10 Urine pH 6.0 (5-9) 06/18/18 18:10 Ur Specific [place] 1.034 (1.010-1.030) H 06/18/18 18:10 Urine Protein Negative (Negative) 06/18/18 18:10 Urine Ketones Negative (Negative) 06/18/18 18:10 Urine Blood Negative (Negative) 06/18/18 18:10 Urine Nitrate Negative (Negative) 06/18/18 18:10 Urine Bilirubin Negative (Negative) 06/18/18 18:10 Urine Urobilinogen Negative (Negative) 06/18/18 18:10 Ur Leukocyte Esterase 1+ (Negative) A 06/18/18 18:10 Urine WBC (Auto) Trace(0-5/hpf) (Absent) 06/18/18 18:10 Urine RBC (Auto) Trace(0-2/hpf) (Absent) 06/18/18 18:10 Ur Squamous Epith Cells Present (Absent) A 06/18/18 18:10 Urine Bacteria Absent (Absent) 06/18/18 18:10 Urine Glucose Negative (Negative) 06/18/18 18:10 Assessment: resolving gallstone pancreatitis in pt who is s/p rygb Plan: Laparoscopic cholecystectomy, intraoperative cholangiogram R/B/A discussed and pt aware and questions answered. Possible complications discussed which included by is not ;limited to bleeding, infection, retained CBD stone, bowel or bile duct injury, need for open and/or additional procedures. possible d/c home today from recovery room
[2018-06-20] MEDS ORDERED: Bupivacaine 0.25% W/EPI* 10 ML SDV ONE ×2 (11:09→12:39)
[2018-06-20] MEDS ORDERED: Midazolam* 1 MG/ML 5 ML VIAL (5 MG) ONE (11:42)
[2018-06-20] MEDS ORDERED: fentaNYL* 50 MCG/ML 2 ML VIAL (100 MCG VIAL) ONE ×2 (11:42→12:24)
[2018-06-20] MEDS ORDERED: Scopolamine 1.5 mg* PATCH ONE (11:44)
[2018-06-20] MEDS ORDERED: Rocuronium* 10 MG/ML VIAL ONE ×2 (11:46→12:21)
[2018-06-20] MEDS ORDERED: Iohexol 180 (CONTRAST) 10 ML SDV IV ONE (11:51)
[2018-06-20] MEDS ORDERED: ceFAZolin 1 GM VIAL(*) ONE (12:19)
[2018-06-20] MEDS ORDERED: ceFAZolin 1 GM ADVAN(*) 1 GM ADDV.VIAL IVPB ONE (12:19)
[2018-06-20] MEDS ORDERED: HYDROmorphone INJ1* 1 MG/ML SYRINGE ONE (13:29)
[2018-06-20] MEDS ORDERED: HYDROmorphone INJ1* 1 MG/ML SYRINGE IV PRN (13:31)
[2018-06-20] MEDS ORDERED: Naloxone* 0.4 MG/ML 1 ML VIAL IV PRN (13:31)
[2018-06-20] MEDS ORDERED: Acetaminophen IV 1GM/100ML * 1,000 MG/100 ML VIAL IVPB ONE (13:31)
[2018-06-20] MEDS ORDERED: DiMENhydriNATE IV* 50 MG/ML VIAL IV PUSH PRN (13:32)
[2018-06-20] MEDS ORDERED: Acetaminophen IV 1GM/100ML * 100 ML ONE (14:22)
[2018-06-20] MEDS ORDERED: oxyCODONE TAB* 5 MG TAB ONE (14:22)
--- NOTE | 2018-06-20 14:27 | OP ---
Operative Report - Blank - Operative Report Date of Operation: 06/20/18 Note: Brief Operative Note Preop Dx: gallstone pancreatitis and choledocholithiasis Postop Dx: same Procedure: Laparoscopic cholecystectomy with intraop cholangiogram Anesthesia: GET Surgeon: Gladys In Flight Technician: MINDY Barker; [address] Fluids: 1500ml RL EBL: 30 ml Specimen: gallbladder Drains: none Findings: dictated
[2018-06-20] MEDS ORDERED: oxyCODONE/Acetamin 5/325 MG* TAB PO PRN ×2 (14:31)
--- NOTE | 2018-06-20 15:39 | DS ---
CC: Dr. Lora Rene * DATE OF ADMISSION: 06/18/2018. DATE OF DISCHARGE: 06/20/2018. ATTENDING SURGEON: Dr. Chace Graham * (MINDY Carrion dictating). HOSPITAL COURSE: Please refer to admission history and physical and operative note for details. Briefly, the patient is a patient of our office, status post laparoscopic Shirlene-en-Y gastric bypass who presented with signs and symptoms of gallstone pancreatitis and choledocholithiasis. She was admitted, hydrated, and treated with antibiotics, as well as serial lab work which showed normalization of her bilirubin and liver function tests. She also had improved significantly in terms of pain. She was taken to the operating room on 2018 at which time she underwent laparoscopic cholecystectomy and intraoperative cholangiogram. She was doing well in the recovery room and deemed able to be discharged to home. She will resume her usual home medications ( vitamins and Naproxen prn, as well as Tylenol prn for mild pain or Percocet prn for stronger pain; Rx to be filled by the [facility] ). She has a follow-up appointment scheduled at [facility] on 06/30/[address] Graham. MINDY CARRION [id number]/[facility] #: [id number] MTDD
[2018-06-20 15:43] VITALS: BP 138/81
--- NOTE | 2018-06-20 23:10 | OP ---
CC: Dr. Lora Rene, [facility]. OPERATIVE REPORT: DATE OF OPERATION: 06/20/18 DATE OF : 89 SURGEON: Dr. Graham. ASSISTANTS: MINDY Carrion and PA student, Seamus. ANESTHESIOLOGIST: Dr. Chang. ANESTHESIA: General. PRE-OP DIAGNOSES: Gallstone pancreatitis and choledocholithiasis. POST-OP DIAGNOSES: Gallstone pancreatitis and choledocholithiasis. OPERATIVE PROCEDURE: Laparoscopic cholecystectomy with attempted intraoperative cholangiogram. ESTIMATED BLOOD LOSS: Minimal. IV FLUIDS: 1500 cc of crystalloid fluid given. SPECIMEN: Gallbladder. DRAINS: None. DESCRIPTION OF PROCEDURE: The patient was identified in the preoperative area. Consent was signed. Patient was marked. She was taken to the operating room and placed on the operating table in supine position. Preoperative antibiotics given, sequential devices were placed on the bilateral lower extr emities. General anesthesia was induced. Patient's abdomen was prepped and draped in a standard renita gical fashion. Time-out was performed. Folds of the umbilicus were elevated anteriorly and a Veress needle was attempted to be inserted into the abdominal cavity. This was not successful after 2 attempts and I converted to a right upper gutierrez drant incision at the mid clavicular line just below the rib cage. We deepened this down to the ante rior fascia, which was elevated, and the Veress needle was then placed at the abdominal cavity withou t difficulty. We then placed a periumbilical 12-mm trocar. Laparoscope was inserted though this and there was no evidence of injury from the trocar insertion or with the Veress needle, which was then removed. Additional trocars were then placed in the following positions, a 12 mm in the subxiphoid area and tw o 5 mm on the right costal margin. Review of the gallbladder showed that it was mildly edematous. Small bowel appeared intact. There w as scant free fluid over the liver and in the pelvis. We were able to grasp the fundus of the gallbladder and elevate above the liver. Infundibulum was daria ntified after blunt dissection of anterior abdominal fat off of this site until we could see the full proximal portion of the gallbladder. The common bile duct was identified and a critical view was i dentified. Common bile duct appeared intact for the short portion that we had seen. Next, the peritoneum off the lateral aspect, the gallbladder was taken with electrocautery. The medi al aspect similarly taken. The cystic artery isolated, doubly clipped and ligated. We then cleared off the cystic duct, got behind the gallbladder into the inferior edge of the liver, again seeing wit h critical view. Next, we clipped the cystic duct distally and made a small stanislaw incision proximally and placed a smal l tubing for cholangiogram into the site. I placed a clip to avoid backflow of contrast and then awrren t on and performed a cholangiogram. After injection of 15 cc of Omnipaque, we noted that it just poo led in the area of the gallbladder fossa and it did not show a reasonable study. A second attempt wa s made, but the contrast did flow into the ductal structures, but it was somewhat obscured as it went distally towards the common bile duct. We could see both the left and right branches of the hepatic ductal system, but did not give a good distal image. No particular filling defects were identified in our limited view, and I made a decision to just perform a cholecystectomy by removing the catheter s and placing 2 clips proximally and cutting in between, gallbladder was placed in endoscopic retriev al bag. Review of the cystic duct stump and cystic artery stump showed no bleeding, no bile. We irrigated wh ere bile had leaked and then turned our attention to the stomach pouch. The Shirlene limb was run from the pouch to the jejunojejunostomy and it appeared intact without any abno rmal twisting. Once this was performed, we made our decision to take out the gallbladder through the subxiphoid port. It was dilated and then we used an Endo Close device at the periumbilical 12-mm tr ocar site. It was an 0 Polysorb suture in a simple fashion using Endo Close. The abdomen was then a llowed to collapse and all 4 skin incisions were reapproximated with 4-0 Monocryl subcuticular suture s. Steri-Strips and sterile dressing were applied. The patient tolerated the procedure well. [id number]/[facility] #: [id number]
== END 2018-06-20 15:45 | disposition home or self-care (01) | DRG 263 ==
LOC: ED 12:42 → MED 17:36
PROVIDERS: ADMIT Surgery; ATTEND Surgery
PROC: 0FT44ZZ Resection of Gallbladder, Percutaneous Endoscopic Approach (ICD-10-PCS; principal; 2018-06-18)
PROC: BF101ZZ Fluoroscopy of Bile Ducts using Low Osmolar Contrast (ICD-10-PCS; 2018-06-18)
DX: K80.50 Calculus of bile duct without cholangitis or cholecystitis without obstruction (principal); K85.10 Biliary acute pancreatitis without necrosis or infection; Z68.41 Body mass index [BMI] 40.0-44.9, adult; R16.0 Hepatomegaly, not elsewhere classified; F41.9 Anxiety disorder, unspecified; F32.9 Major depressive disorder, single episode, unspecified; E28.2 Polycystic ovarian syndrome; E66.01 Morbid (severe) obesity due to excess calories; Z84.1 Family history of disorders of kidney and ureter; Z98.84 Bariatric surgery status
CPT/HCPCS: 36415; 74177; 74300; 80053; 80076; 81003; 81015; 81025; 82607; 82746; 83605; 83690; 83735; 84100; 84425; 85025; 86140; 99285; A9270-GY; J0690; J1170; J2250; J3010; J3480; Q9967